=== PATIENT | female | born 1955 | race Caucasian/White ===

== ENCOUNTER 2016-05-09 09:48 | Outpatient (CLI) | payer MEDICARE, BC ==
[~2016-05-09] VITALS: Ht 167.6 cm; Wt 89.0 kg
[~2016-05-09 09:48] MED LIST: CLARITIN 1010 MG/TAB PO; COLACE 100100 MG/CAP PO; FOLIC ACID 11 MG/TA1 PO; FOSAMAX 35MG35 MG PO; HCTZ PO; IRON TABLETS325 MG PO; LEVOTHYROXINE PO; MIRALAX PA17 GM/Dose PO; PREDNISONE20 MG PO; PRILOSEC 20MG20 MG PO; SEROQUEL 2525 MG/TAB PO; SYNTHROID0.1 MG/TAB PO; TRANDATE 100MG100 MG PO; TREXALL15 MG PO; ZYRTEC10 M1 PO
[2016-05-09] MEDS ORDERED: SYNTHROID0.125 MG/T PO (16:00)
[2016-05-09] MEDS ORDERED: LASIX 20MG TABL20 MG PO (16:00)
[2016-05-09] MEDS ORDERED: TOPROL XL100 MG PO (16:01)
[2016-05-09] MEDS ORDERED: ASPIRIN E.C. 8181 MG PO (16:02)
[2016-05-09] MEDS ORDERED: ZYRTEC 10MG10 MG PO (16:02)
[2016-05-09] MEDS ORDERED: KEPPRA 500MG500 MG PO (16:03)
[2016-05-09] MEDS ORDERED: VFEND 200MG200 MG PO (16:04)
[2016-05-09] MEDS ORDERED: NEURONTIN300 MG/CAP PO (16:05)
[2016-05-09] MEDS ORDERED: FOLIC ACID 11 MG/TA1 PO (16:07)
[2016-05-09] MEDS ORDERED: COZAAR 25MG25 MG/TAB PO (16:07)
[2016-05-09] MEDS ORDERED: MAGNESIUM250 M1 PO (16:07)
[2016-05-09] MEDS ORDERED: ALDACTONE 25MG25 M1 PO (16:08)
[2016-05-09] MEDS ORDERED: KLOR-CON M2020 MEQ PO (16:08)
[2016-05-09] MEDS ORDERED: ATIVAN 0.50.5 MG/TAB PO (16:11)
== END 2016-05-09 11:00 | disposition home or self-care (01) ==
LOC: EUO 09:48
DX: Z45.2 Encounter for adjustment and management of vascular access device (principal); I87.2 Venous insufficiency (chronic) (peripheral); J15.1 Pneumonia due to Pseudomonas
CPT/HCPCS: C1751

== ENCOUNTER → 2016-05-10 | Outpatient (REF) ==
[~2016-05-10] MED LIST changes: +ALDACTONE 25MG25 M1 PO; +ASPIRIN E.C. 8181 MG PO; +ATIVAN 0.50.5 MG/TAB PO; +COZAAR 25MG25 MG/TAB PO; +KEPPRA 500MG500 MG PO; +KLOR-CON M2020 MEQ PO; +LASIX 20MG TABL20 MG PO; +MAGNESIUM250 M1 PO; +NEURONTIN300 MG/CAP PO; +SYNTHROID0.125 MG/T PO; +TOPROL XL100 MG PO; +VFEND 200MG200 MG PO; +ZYRTEC 10MG10 MG PO
== END ==
LOC: ZAIV 05-09 06:30
DX: Z45.2 Encounter for adjustment and management of vascular access device (principal)